=== PATIENT | male | born 1950 | race Caucasian/White ===

== ENCOUNTER → 2017-03-07 | Outpatient (CLI) | payer OTHER ==
--- NOTE | ~2017-03-07 | MR17 ---
[facility] A Service of [facility] & [facility] RADIOLOGY TEXT RESULTS PATIENT: JANICE YANG LOCATION: [facility] : 50 UNIT #: [id number] AGE: [address]: Gordo Cohen II, MD SEX: M ORDER DR: [id number] [facility] [address] [place], [place] [address] [id number] O MR#: [id number] Acc #: [id number] NAME: JANICE YANG : 1950 SEX: M STUDY DATE/TIME: 03/07/2017 9:40 UNIT: [facility] ROOM: STUDY DESCRIPTION: MR Brain WWo Contrast Attending Physician: Gordo Cohen II., M.D. Referring Physician: Gordo Cohen II., M.D. Ordering Physician: Gordo Cohen II., M.D. Primary Care Physician: Tammi Willis [facility] CENTER REPORT This report is preliminary unless electronic signature is present. EXAM MRI of the brain with and without contrast dated 03/07/2017. COMPARISON None HISTORY Decrease in memory for about 8 months with twitching in the right arm for 8 months. FINDINGS Multisequence, multiplanar imaging of the brain was obtained with and without contrast. GFR measured greater than 60. 15 mL of MultiHance was administered intravenously. Punctate tiny few nonspecific, nonenhancing hyperintense T2-signal lesions are noted in the white matter, particularly in bifrontal lobes. No acute stroke, enhancing mass, mass effect, midline shift, or hydrocephalus is seen. Vascular flow voids of the major cerebral arteries and dural venous sinuses are not obstructed on these thicker slices. S-shaped nasal septal deviation is seen. The right maxillary antrum is asymmetrically smaller when compared to the left. Imaged orbits with the ocular structures are unremarkable. There is minimal left and mild right mastoid mucosal thickening. Thick slices through the sella with the pituitary gland, pineal region, and internal auditory canals with the inner ear structures do not demonstrate any significant abnormality. Postcontrast sequences do not demonstrate abnormal enhancement. IMPRESSION Nonspecific few hyperintense T2-signal lesions are noted in the brain involving bifrontal white matter. They are likely related to minimal chronic microvascular ischemic change or a migraine based on age and statistics. S-shaped nasal septal deviation is seen. There is mild bilateral mastoid mucosal thickening. [facility] A Service of [facility] & [facility] RADIOLOGY TEXT RESULTS PATIENT: JANICE YANG LOCATION: [facility] : 50 UNIT #: [id number] AGE: [address]: Gordo Cohen II, MD SEX: M ORDER DR: Dictated by... Aravind Dupree M.D. THIS IS AN ELECTRONICALLY VERIFIED REPORT Aravind Dupree M.D. at 03/07/2017 4:28 PM CPR/tmw TD: 03/07/2017 16:22 JOB #: [id number] MRI CENTER REPORT Page 1 of 1 COPY
[2017-03-07 20:00] LABS: POC - CREATININE 0.92 mg/dL (0.64-1.27); POC - GFR >60.0 mL/min (>60)
== END | disposition home or self-care (01) ==
LOC: CMRI 08:31
PROVIDERS: Psychiatry & Neurology Neurology
DX: R47.01 Aphasia (principal); G93.89 Other specified disorders of brain
CPT/HCPCS: 70553; 82565; A9577